=== PATIENT | female | born 1990 | race African-American/Black ===

== ENCOUNTER 2016-10-26 09:44 | Emergency (ER) | payer MEDICAID ==
[2016-10-26] MEDS ORDERED: SODIUM CHLORIDE 0.9% 1,000 ML ONE (10:57)
== END 2016-10-26 14:21 | disposition home or self-care (01) ==
LOC: ER 09:44
DX: G35 Multiple sclerosis (principal); R10.9 Unspecified abdominal pain; Z79.899 Other long term (current) drug therapy; Z79.4 Long term (current) use of insulin; F17.210 Nicotine dependence, cigarettes, uncomplicated
CPT/HCPCS: 36415; 80053; 80061; 82553; 82947; 84484; 84702; 85025; 85384; 85610; 85730; 96360